=== PATIENT | female | born 1990 | race American Indian/Alaskan Native ===

== ENCOUNTER 2019-08-02 14:04 | Emergency (ER) | payer OTHER, BC ==
[2019-08-02 14:10] VITALS: BP 124/84
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
== END 2019-08-02 15:16 | disposition left against medical advice (07) ==
LOC: ED 14:04
DX: R51 Headache (principal); V49.59XA Passenger injured in collision with other motor vehicles in traffic accident, initial encounter; Y92.89 Other specified places as the place of occurrence of the external cause; Y92.410 Unspecified street and highway as the place of occurrence of the external cause; Y99.8 Other external cause status
CPT/HCPCS: 99281